=== PATIENT | female | born 1955 | race Caucasian/White ===

== ENCOUNTER → 2016-12-22 | Outpatient (CLI) | payer OTHER ==
[~2016-12-22] MED LIST: ALBUTEROL17 GM IH; ALBUTEROL17 GM INH; AMITRIPTYLINE H25 MG PO; AMITRIPTYLINE H50 MG PO; ANTI-DIARRHEAL2 M1 PO; APAP BUTALBITAL PO; BACLOFEN10 MG PO; BACTRIM DS TABL1 TA1 PO; BUSPAR; COMBIGAN EYE DRO5 ML OU; DESYREL150 M1 PO; DITROPAN5 MG PO; DULOXETINE HCL60 MG PO; FLEXERIL10 MG PO; FLOMAX0.4 M1 PO; GABAPENTIN600 MG PO; GLUCOPHAGE XR500 MG PO; HYDROCHLOROTH12.5 M1 PO; HYDROCODON-ACE1 EAC5 PO; LACTULOSE10 GM/151; LIDODERM30 EA TD; LISINOPRIL10 MG PO; LYRICA100 MG PO; MACROBID100 M1 PO; METFORMIN HCL500 M1 PO; NEURONTIN800 MG PO; NOVOLOG MI100 UNIT/1 SUBQ; NOVOLOG100 UNIT/1 SUBQ; OMEPRAZOLE40 M1 PO; OXYCODONE APAP PO; OXYCODONE-ACET1 EAC1 PO; OXYCODONE15 M1 PO; PAROXETINE HCL40 M1 PO; PHENERGAN12.5 MG PO; PRILOSEC PO; PRILOSEC20 M1 PO; QVAR7.3 G1 IH; RANITIDINE HCL150 M1 PO; RELAFEN500 MG PO; REQUIP1 MG PO; ROPINIROLE HCL1 MG PO; SKIN TREATMENT225 GM TOP; SOMA PO; TIZANIDINE HCL4 M1 PO; TRAZODONE HCL150 MG PO; VOLTAREN75 MG PO; XALATAN OU; ZANAFLEX4 M1 PO; ZESTRIL10 M2 PO
--- NOTE | ~2016-12-22 | PFT ---
[id number] [facility] [address] [place], [place] [address] [id number] O MR#: [id number] NAME: SANDRA CARNEY ROOM: SEX: F STUDY DATE/TIME: 12/24/2016 : 1955 AGE: 61 STUDY DESCRIPTION: Attending Physician: Edgar So M.D. Primary Care Physician: Jake Bonilla M.D. PULMONARY DIAGNOSTIC REPORT EXAM Pulmonary function test. FINDINGS Spirometry is suggestive of a mild obstructive defect. There is a borderline response to bronchodilators yielding a FEV1 of 1.95 L, 69% of predicted. Flow volume loop is suggestive of an obstructive defect. Lung volumes reveal air trapping and hyperinflation. Diffusion capacity is reduced to 61%. Changes are consistent with emphysema. Dictated by... Michael Cummings/uziel TD: 12/24/2016 13:22 JOB #: [id number] CC: Edgar So M.D. PULMONARY DIAGNOSTIC REPORT
== END | disposition home or self-care (01) ==
LOC: CRC 13:46
DX: J44.9 Chronic obstructive pulmonary disease, unspecified (principal)
CPT/HCPCS: 94060; 94726; 94729

== ENCOUNTER 2017-01-30 20:53 | Inpatient (IN) | payer OTHER ==
--- NOTE | ~2017-01-30 | EKG ---
PATIENT: SANDRA CARNEY UNIT #: [id number] Ventricular Rate: 80 BPM Atrial Rate: 80 BPM P-R Interval: 158 ms QRS Duration: 90 ms Q-T Interval: 404 ms QTC Calculation(Bezet): 465 ms P [place]: 75 degrees Calculated R [place]: 73 degrees Calculated T [place]: 75 degrees Diagnosis Line: Normal sinus rhythm Diagnosis Line: Normal ECG Diagnosis Line: No previous ECGs available Diagnosis Line: Confirmed by DEWAYNE CORRAL MD ([id number]) on 02/01/2017 Diagnosis Line: 7:09:50 AM INTERPRETING MD: ELLIS REED
--- NOTE | ~2017-01-30 | CR72 ---
[facility] A Service of [facility] RADIOLOGY TEXT RESULTS PATIENT: SANDRA CARNEY LOCATION: [place] [address] : 55 UNIT #: [id number] AGE: [address]: Nicho Montoya MD SEX: F ORDER DR: [id number] [facility] [address] [facility]. [place], [place] [address] [id number] I MR#: [id number] Acc #: [id number] NAME: SANDRA CARNEY : 1955 SEX: F STUDY DATE/TIME: 01/30/2017 22:34 UNIT: [facility] ROOM: [facility] STUDY DESCRIPTION: CR Chest Single View Portable Attending Physician: Nicho Montoya M.D. Ordering Physician: Shameka Nieves M.D. Primary Care Physician: Edgar So M.D. MEDICAL IMAGING REPORT This report is preliminary unless electronic signature is present EXAM AP portable chest 01/30/2017 HISTORY A 61-year-old female admitted to the hospital through the ED with acute intertrochanteric left hip fracture. Preoperative testing prior to hip surgery. TECHNIQUE AP portable upright chest x-ray. FINDINGS The heart size and pulmonary vascularity are within normal limits. The lungs are expanded and clear. No visible pulmonary infiltrate, pneumothorax or pleural effusion. Old healed right rib fracture deformities. Previous lower cervical spine fusion surgery. No change since 07/23/2016. IMPRESSION 1. No active disease. 2. Old healed right rib fractures. 3. No change since 07/23/2016. Dictated by... Jake Vaz M.D. THIS IS AN ELECTRONICALLY VERIFIED REPORT Jake Vaz M.D. at 02/02/2017 5:59 AM LV/avel TD: 01/31/2017 20:51 [facility] A Service of [facility] RADIOLOGY TEXT RESULTS PATIENT: SANDRA CARNEY LOCATION: [place] [address] : [birth year] UNIT #: [id number] AGE: [address]: Nicho Montoya MD SEX: F ORDER DR: JOB #: [id number] MEDICAL IMAGING REPORT Page 1 of 1 COPY
--- NOTE | ~2017-01-30 | CO ---
Unit #: [id number] #: [id number] Patient: SANDRA HAMPTON [id number] [address] [place], [place] [address] [id number] I MR#: [id number] NAME: SANDRA HAMPTON ROOM: 461 Age: 61 Sex: F Admission Date: 01/30/2017 : 1955 Attending Physician: Nicho Montoya M.D. Primary Care Physician: Edgar So M.D. Consultation Date: 01/31/2017 CONSULTATION REPORT CHIEF COMPLAINT Left hip pain. HISTORY OF PRESENT ILLNESS Ms. Hampton is a 61-year-old female, who is status post a ground level fall at home, who is then transferred to the emergency department and diagnosed with a left intertrochanteric hip fracture. She states that she is status post recent lumbar spine fusion as well. She has been ambulating with a walker or cane. She was without either of these assistive devices when she fell. She was subsequently unable to stand or bear weight on the affected extremity and was brought by EMS to the emergency department. Orthopedic consultation has been requested regarding care of her hip fracture. She has been admitted to the Internal Medicine hospitalist service. She is currently examined supine on her hospital bed. She is somewhat tearful and complaining of pain in the left hip. This is worse with any attempted movement in bed. It is relieved by a pillow under the affected extremity and her IV pain medication. PAST MEDICAL HISTORY COPD, diabetes mellitus, gastroesophageal reflux, anxiety disorder, chronic pain disorder, nephrolithiasis, hypertension. PAST SURGICAL HISTORY Appendectomy, , lumbar diskectomy, lumbar spine fusion. MEDICATIONS Albuterol, Combigan eyedrops, Neurontin, amitriptyline, Glucophage, Xalatan eyedrops, insulin NovoLog, ranitidine, oxycodone 15 mg p.o. q.4 hours, Soma 350 mg p.o. b.i.d. ALLERGIES She has an adverse reaction to Dilaudid and allergies to Demerol and tetracycline. SOCIAL HISTORY The patient denies any alcohol use. She smokes 7.5 packs of cigarettes daily. She is not working. She previously ambulated with a walker or cane. FAMILY HISTORY Noncontributory to current illness. Unit #: [id number] #: [id number] Patient: SANDRA HAMPTON REVIEW OF SYSTEMS Ten systems reviewed and negative except as noted in the HPI with chronic low back pain. PHYSICAL EXAMINATION GENERAL: This is a 61-year-old female appearing slightly older than stated age. HEENT: Normocephalic, atraumatic cranium. Status post multiple tooth extractions. PSYCHIATRIC: Awake, alert, and oriented to person, place, and time. CARDIAC: Regular rate and rhythm. PULMONARY: No increased work of breathing. Symmetric chest rise. ABDOMEN: Nondistended. NEUROLOGIC: Intact motor function in the bilateral upper extremities and right lower extremity. She demonstrates intact function L4 through S1 in the left lower extremity. Sensation is intact throughout. VASCULAR: Her foot is warm and well perfused. MUSCULOSKELETAL: Left lower extremity shortened and somewhat externally rotated. She has had this rested with a pillow under the knee. SKIN: There is no overlying evidence of open injury or skin changes. LYMPHATICS: No lymphedema or lymphadenopathy. DIAGNOSTIC STUDIES IMAGING STUDIES: Plain film radiographs reviewed of the left hip and demonstrate a displaced intertrochanteric hip fracture with displacement of the lesser trochanter as well. LABORATORY RESULTS: BMP is unremarkable. Hemoglobin is 10.4, otherwise CBC is unremarkable. INR is 1.1. ASSESSMENT AND PLAN This is a 61-year-old female with chronic pain disorder with left intertrochanteric hip fracture after ground level fall. We will plan for intramedullary nailing of the left hip this morning. The nature of the surgery has been discussed with the patient and family. They elected to proceed. We discussed pain control postoperatively may be difficult as she is already on oxycodone 15 mg q.4 hours at baseline. We will plan to begin DVT prophylaxis postop tomorrow. Dictated by... Juan Fuller M.D. MARIA A/mari TD: 02/01/2017 01:43 JOB #: [id number] CONSULTATION REPORT Page 1 of 1 X Juan Fuller MD CONSULTATION REPORT
--- NOTE | ~2017-01-30 | OR ---
Unit #: [id number] #: [id number] Patient: SANDRA CARNEY [id number] [address] [id number] I MR#: [id number] NAME: SANDRA CARNEY ROOM: 461 Date of Procedure: 01/31/2017 Admission Date: 01/30/2017 Surgeon: Juan Fuller M.D. : 1955 Attending Physician: Nicho Montoya M.D. Primary Care Physician: Edgar So M.D. OPERATIVE REPORT PREOPERATIVE DIAGNOSIS Left intertrochanteric hip fracture. POSTOPERATIVE DIAGNOSIS Left intertrochanteric hip fracture. PROCEDURE PERFORMED Left hip intramedullary nailing. IMPLANTS [employer] cephalomedullary nail 10 x 210 mm with a 130 degree neck shaft angle and a 95 mm lag screw with a 32.5 mm distal interlocking screw. ANESTHESIA General. ESTIMATED BLOOD LOSS 100 mL. COMPLICATIONS None apparent. INDICATIONS FOR PROCEDURE Ms. Lezama is a 61-year-old female, who fell injuring her left hip while at home. She sustained a displaced intertrochanteric hip fracture. Operative intervention in the form of intramedullary nailing was discussed with the patient and family, they elected to proceed. DESCRIPTION OF PROCEDURE The patient was identified in the preoperative holding area. The operative site was marked. Preoperative antibiotics were administered. The patient was brought to the operating room while supine on her hospital bed. A general anesthetic was induced on her bed and she was then transferred to the operative table. The patient was placed on the [place] table with the legs in a scissored position with the left lower extremity in traction. The hip fracture was reduced on the operative table. The left lower extremity was then prepped and draped in sterile fashion. A shower curtain drape was utilized. An incision was made proximal to the greater trochanter. A starting awl was advanced through the tip of the greater trochanter into the proximal Unit #: [id number] #: [id number] Patient: SANDRA CARNEY femoral canal. The starting point was confirmed on both AP and lateral images. A reaming alanna was then passed down the femoral canal. The proximal opening reamer was utilized to ream the proximal femur. The nail was then inserted and seated to the desired depth. The guide pin for the lag screw was drilled up the femoral neck. Position was confirmed on orthogonal images. This was then measured, reamed, and inserted. Attention was then turned to the distal interlocking screw. Utilizing the targeting outrigger jig, a stab incision was created for the distal interlock. The drill sleeves were advanced down to bone on the femur. We then drilled and inserted a 32.5 mm interlocking screw. Orthogonal images were used to confirm that the fracture was in desired location within the intramedullary nail. The nail insertion handle was removed. It should be noted that prior to removing the nail once the lag screw was in place, the set screw was advanced down the nail to fully lock the lag screw in place and prevent any sliding. Traction was then removed and compression was applied through the drill sleeve. This was prior to placing the distal interlocking screw as noted above. Final images were obtained and demonstrated anatomic reduction with satisfactory placement of the hardware. The wounds were irrigated and closed in a layered fashion with 2-0 Vicryl and jackie in the skin. Sterile dressings were applied. DISPOSITION Stable to the recovery room. Dictated by... Michael Ascencio/mari TD: 02/02/2017 05:25 JOB #: [id number] OPERATIVE REPORT Page 1 of 1 X Juan Fuller MD PROCEDURE OPERATIVE NOTE
--- NOTE | ~2017-01-30 | HP ---
Unit #: [id number] #: [id number] Patient: SANDRA CARNEY [id number] [address] [place], [place] [address] [id number] I MR#: [id number] NAME: SANDRA CARNEY ROOM: 241 Age: 61 Sex: F Admission Date: 01/30/2017 : 1955 Attending Physician: Nicho Montoya M.D. Primary Care Physician: Edgar So M.D. HISTORY AND PHYSICAL CHIEF COMPLAINT Fall with left hip pain. DISCUSSION This is a 61-year-old female with history of insulin dependent diabetes, asthma, GERD, degenerative disk disease of the spine, chronic back pain, anxiety, depression, restless leg syndrome, arthritis, and glaucoma. Denies any history of coronary artery disease. She says she was with the dog walking and she (1) and then she tripped and landed on the left hip pain and with severe left hip pain. She was brought to the emergency room. On workup, she was found to have comminuted intertrochanteric left femur fracture. Eventually been admitted. She denies chest pain. She is complaining of severe left hip pain. Denies nausea, vomiting, fever, chills, cough, diarrhea, constipation, or any other complaints. PAST MEDICAL HISTORY 1. Insulin dependent diabetes. 2. History of seasonal asthma. 3. GERD. 4. Degenerative disk disease of the spine/chronic back pain. 5. Arthritis. 6. Anxiety/depression. 7. Restless leg syndrome. 8. History of glaucoma. PAST SURGICAL HISTORY 1. History of C section. 2. Appendectomy. 3. History of back surgery x2 in July 2016 and September 2016. 4. Cervical disk surgery. 5. History of hand laceration repair. 6. History of right foot surgery. SOCIAL HISTORY She smokes less than 1/2 pack daily. Denies alcohol. Denies illicit drug use. FAMILY HISTORY Father of throat cancer. Otherwise, unremarkable family history to pertinent case. MEDICATIONS From home are following: Unit #: [id number] #: [id number] Patient: SANDRA CARNEY 1. Carisoprodol 325 p.o. twice daily. 2. Combigan eyedrops 2 times a day. 3. Neurontin 800 mg 3 times daily. 4. Xalatan eyedrops at bedtime. 5. Glucophage 500 mg before breakfast. 6. NovoLog 20 units subcu. before breakfast and supper. 7. Oxycodone 15 mg 4 times a day. 8. Ranitidine 150 mg daily. 9. Ventolin 2 puffs q.4 hours p.r.n. 10. Amitriptyline 25 mg at bedtime. REVIEW OF SYSTEMS All review of systems negative, except history of present illness. PHYSICAL EXAMINATION GENERAL APPEARANCE: Middle-aged female lying in the bed comfortably. She is alert, awake, oriented x3. In moderate distress secondary to severe left hip pain. VITAL SIGNS: Current vitals are following: Temperature 98.2, heart rate 84, respiratory rate 20, blood pressure 107/78, and oxygen at 95% on room air. HEENT: Head is normocephalic and atraumatic. Pharynx normal. NECK: Supple. No JVD. No thyromegaly. LUNGS: Clear to auscultation. No rhonchi. No wheezing. HEART: S1 and S2. Regular rate and rhythm. ABDOMEN: Soft, nontender, and nondistended. Bowel sounds positive. SKIN: Color normal. Warm and dry. NEUROLOGICAL: She is alert and oriented x4. Cranial nerves, II-XII, intact. Upper extremity power 5/5. Lower extremities: Unable to do power secondary to severe pain. PSYCH: Mood and affect normal. DIAGNOSTIC STUDIES LABORATORY: Sodium 136, potassium 3.4, chloride 101, glucose 181, BUN 8, and creatinine 0.5. INR is 1.1. CBC: White count 7.2, hemoglobin 10, hematocrit 32, and platelets 211. IMAGING: X-ray of left hip shows comminuted nondisplaced intertrochanteric proximal left femur fracture. ASSESSMENT AND PLAN 1. Status post fall with comminuted nondisplaced intertrochanteric left femur fracture. Keep patient NPO from midnight. Ortho, Dr. Fuller, to see. Repeat chest x-ray and EKG. She mentions she has no history of coronary artery disease in the past. 2. Insulin dependent diabetes. Will hold the Glucophage and insulin. Place on sliding scale. 3. History of asthma, currently stable. 4. GERD. 5. Degenerative disk disease of the spine/chronic back pain. 6. Anxiety/depression. 7. Arthritis. 8. Restless leg syndrome. 9. History of glaucoma. 10. DVT prophylaxis, will place the patient on Lovenox 40 mg subcu. daily. Unit #: [id number] #: [id number] Patient: SANDRA CARNEY Dictated by Michael June/robel TD: 01/31/2017 10:41 JOB #: [id number] HISTORY AND PHYSICAL Page 1 of 1 X X HISTORY AND PHYSICAL
--- NOTE | ~2017-01-30 | DS ---
Unit #: [id number] #: [id number] Patient: SANDRA HAMPTON [id number] [address] [address] [id number] I MR#: [id number] NAME: SANDRA HAMPTON ROOM: 461 Age: 61 Sex: F Admission Date: 01/30/2017 : 1955 Discharge Date: 02/02/2017 Attending Physician: Suzanne Mckeon M.D. Primary Care Physician: Edgar So M.D. DISCHARGE SUMMARY PRINCIPAL DIAGNOSES 1. Left hip fracture status post intramedullary nailing. 2. Acute postop blood loss anemia; at discharge hemoglobin is 8.3. 3. Osteoporosis. 4. Severe anxiety. 5. Chronic back pain, maintained on narcotics. 6. Insulin-dependent diabetes mellitus, controlled. 7. Gastroesophageal reflux disease. 8. Arthritis. 9. Glaucoma. 10. Restless leg syndrome. 11. Anxiety and depression. CONSULTANTS Dr. Fuller, orthopedic surgery. PROCEDURES Left hip intramedullary nailing on January 31, 2017. This occurred without complication. DIAGNOSTIC STUDIES IMAGING: X-ray of left hip on January 30, 2017 with a comminuted intertrochanteric left hip fracture. Chest x-ray on January 30, 2017 with healed right rib fracture. CLINICAL HISTORY AND HOSPITAL COURSE Ms. Hampton is a 61-year-old female who presented to the emergency department with left hip pain after a fall at home. Please refer to H and P for further details. X-ray in the emergency department revealed a left hip fracture, and the patient was subsequently admitted. Dr. Fuller was consulted, and the patient underwent intramedullary nailing of the hip. Postoperatively, she has done relatively well with the exception of complaints of pain, as will be outlined below. Preoperatively her hemoglobin was 10.4, and it is now down to 8.3 postoperatively; however, she does not have any significant large hematoma on exam. Hemoglobin can be monitored as an outpatient. She will be maintained on anticoagulation as outlined below. I will also start her on calcium and vitamin D given her diagnosis of osteoporosis, and in 6-8 weeks she would benefit from bisphosphonate therapy. Postoperatively the patient had significant complaints of pain to the point that she had a decrease in mental status due to her dosing of pain Unit #: [id number] #: [id number] Patient: SANDRA HAMPTON medication based upon her pain scale. Upon discussion with the patient this morning, she was initially asleep and comfortable when I entered the room, but when awakened, she starts crying saying she is in pain. I think there is a large anxiety component to her pain, and this will have to be watched closely at rehab. The patient's other chronic conditions all remained stable. She will be discharged to rehab when bed is available. DISCHARGE CONDITION Stable. DISCHARGE STATUS Discharge to rehab. DISCHARGE MEDICATIONS 1. Albuterol inhaler 2 puffs q.4 hours p.r.n. shortness of breath. 2. Combigan eyedrops 1 drop to both eyes q.12 hours. 3. Lovenox 40 mg subcutaneously q.24 hours at noon, to stop after doses on February 22, 2017. 4. Neurontin 800 mg p.o. t.i.d. 5. Amitriptyline 25 mg at bedtime. 6. Metformin XR 500 mg at breakfast. 7. Xalatan eyedrops 1 drop to both eyes at bedtime. 8. NovoLog sliding scale with meals. 9. Ranitidine 150 mg daily. 10. Oxycodone 20 mg p.o. q.4 hours p.r.n. pain. (Of note, the patient's home dose is 15 mg p.o. q.4 hours, and this is her discharge dose from rehab.) 11. Carisoprodol 350 mg p.o. b.i.d. 12. Calcium plus vitamin D 600 mg p.o. b.i.d. DISCHARGE INSTRUCTIONS Patient was instructed to follow a regular diet. She can increase her activity as tolerated under the care of physical and occupational therapy. She is weightbearing as tolerated on the left lower extremity. FOLLOW-UP 1. Patient will follow up with Dr. Fuller in 2 weeks. 2. Needs CBC done on February 05, 2017 to ensure hemoglobin is stabilizing. 3. Patient will follow up with her primary care physician, Dr. So, upon discharge from rehab. NOTE: Time spent on discharge - 33 minutes. Dictated by... Suzanne Mckeon M.D. ANJEL/mariela TD: 02/02/2017 08:18 JOB #: [id number] Unit #: [id number] #: [id number] Patient: SANDRA HAMPTON ANN DISCHARGE SUMMARY Page 1 of 1 X Suzanne Mckeon MD X DISCHARGE SUMMARY
--- NOTE | ~2017-01-30 | CR150 ---
[facility] A Service of [facility] RADIOLOGY TEXT RESULTS PATIENT: SANDRA CARNEY LOCATION: [facility] 461-01 : 55 UNIT #: [id number] AGE: [address]: Nicho Montoya MD SEX: F ORDER DR: [id number] [facility] [address] [place], [place] [address] [id number] I MR#: [id number] Acc #: [id number] NAME: SANDRA CARNEY : 1955 SEX: F STUDY DATE/TIME: 01/30/2017 20:15 UNIT: [facility] ROOM: [facility] STUDY DESCRIPTION: CR Hip Min 2 Views Lt Attending Physician: Nicho Montoya M.D. Ordering Physician: Mata Leyva M.D. Primary Care Physician: Edgar So M.D. MEDICAL IMAGING REPORT This report is preliminary unless electronic signature is present EXAM Left hip 01/30/2017 HISTORY 61-year-old female in the ED with severe pain after a fall onto concrete surface today prior to arrival. TECHNIQUE 2 view left hip series. FINDINGS The examination shows a comminuted, nondisplaced intertrochanteric fracture of the proximal left femur involving both the greater and lesser trochanters. Femoral head and neck appear intact. No visible pelvis fracture. IMPRESSION Comminuted intertrochanteric left hip fracture. Dictated by... Jake Vaz M.D. THIS IS AN ELECTRONICALLY VERIFIED REPORT Jake Vaz M.D. at 02/02/2017 5:59 AM LV/tyra TD: 01/31/2017 15:22 JOB #: [id number] MEDICAL IMAGING REPORT Page 1 of 1 COPY
--- NOTE | ~2017-01-30 | CR150 ---
[facility] A Service of [facility] RADIOLOGY TEXT RESULTS PATIENT: SANDRA CARNEY LOCATION: [place] [address]- : 55 UNIT #: [id number] AGE: [address]: Nicho Montoya MD SEX: F ORDER DR: [id number] [facility] [address] [address] [id number] I MR#: [id number] Acc #: [id number] NAME: SANDRA CARNEY : 1955 SEX: F STUDY DATE/TIME: 01/31/2017 9:17 UNIT: [facility] ROOM: [facility] STUDY DESCRIPTION: CR Hip Min 2 Views Lt Attending Physician: Nicho Montoya M.D. Ordering Physician: Juan Fuller M.D. Primary Care Physician: Edgar So M.D. MEDICAL IMAGING REPORT This report is preliminary unless electronic signature is present EXAM Left hip 01/31/2017 HISTORY 61-year-old female with left hip fracture status post gamma nail placement in operating room 01/31/2017 COMPARISON Left hip 01/30/2017 FINDINGS 8 intraoperative fluoroscopic images demonstrate intraoperative placement of a left hip gamma nail. Images were interpreted intraoperatively by the attending surgeon. Total fluoroscopic time 1.05 minutes. Dictated by... Adan Moore M.D. THIS IS AN ELECTRONICALLY VERIFIED REPORT Adan Moore M.D. at 02/01/2017 8:14 AM ARNOLDO/narendra TD: 02/01/2017 04:50 JOB #: [id number] MEDICAL IMAGING REPORT Page 1 of 1 COPY
[2017-01-30 20:26] LABS: BASOPHIL# 0.1 X10e3 (0-0.3); BASOPHIL% 1.2 % (0-2.5); EOSINOPHIL# 0.2 X10e3 (0-0.7); EOSINOPHIL% 2.7 % (0.0-7.0); HEMATOCRIT 32.3 % (35.0-45.0); HEMOGLOBIN 10.4 gm/dL (12.0-16.0); LYMPHOCYTE# 2.9 X10e3 (1.0-3.5); LYMPHOCYTE% 40.8 % (17.0-45.0); MEAN CELL VOLUME 85.1 FL (83-96); MEAN CORPUSCULAR HEMOGLOBIN 27.5 PG (28-34); MEAN CORPUSCULAR HGB CONC 32.4 g/dL (30-36); MEAN PLATELET VOLUME 8.2 FL (6.5-11.5); MONOCYTE# 0.6 X10e3 (0-1.0); MONOCYTE% 8.4 % (3.0-12.0); NEUTROPHIL# 3.4 X10e3 (1.5-7.1); NEUTROPHIL% 46.9 % (40-75); PLATELET COUNT 211 X10e3 (140-420); RED BLOOD COUNT 3.79 X10e (3.90-5.30); WHITE BLOOD COUNT 7.2 X10e3 (4.0-10.5)
[2017-01-30 20:30] LABS: DIFF IND NO
[2017-01-30 20:33] LABS: INR 1.1; PARTIAL THROMBOPLASTIN TIME 28.3 SECONDS (23.5-31.3); PROTHROMBIN TIME (PATIENT) 11.6 SECONDS (9.6-11.5)
[2017-01-30 20:47] LABS: CALCIUM SERUM 8.6 mg/dL (8.4-10.2); CREATININE SERUM 0.5 mg/dL (0.6-1.4); GLOM FILT RATE Estimated 104.5 mL/min (>60); POTASSIUM 3.4 mmol/L (3.5-5.1)
[~2017-01-30 20:53] MED LIST changes: -ALBUTEROL17 GM INH; -AMITRIPTYLINE H25 MG PO; -BUSPAR; -COMBIGAN EYE DRO5 ML OU; -DESYREL150 M1 PO; -DULOXETINE HCL60 MG PO; -FLOMAX0.4 M1 PO; -GLUCOPHAGE XR500 MG PO; -LACTULOSE10 GM/151; -LYRICA100 MG PO; -NEURONTIN800 MG PO; -NOVOLOG100 UNIT/1 SUBQ; -OMEPRAZOLE40 M1 PO; -OXYCODONE-ACET1 EAC1 PO; -OXYCODONE15 M1 PO; -RANITIDINE HCL150 M1 PO; -RELAFEN500 MG PO; -REQUIP1 MG PO; -SOMA PO; -XALATAN OU; -ZANAFLEX4 M1 PO; -ZESTRIL10 M2 PO
[2017-01-30] MEDS ORDERED: SOMA PO (21:20)
[2017-01-30] MEDS ORDERED: NEURONTIN800 MG PO (21:21)
[2017-01-30] MEDS ORDERED: COMBIGAN EYE DRO5 ML OU (21:21)
[2017-01-30] MEDS ORDERED: XALATAN OU (21:23)
[2017-01-30] MEDS ORDERED: GLUCOPHAGE XR500 MG PO (21:24)
[2017-01-30] MEDS ORDERED: NOVOLOG100 UNIT/1 SUBQ (21:25)
[2017-01-30] MEDS ORDERED: OXYCODONE15 M1 PO (21:27)
[2017-01-30] MEDS ORDERED: RANITIDINE HCL150 M1 PO (21:27)
[2017-01-30] MEDS ORDERED: FLOMAX0.4 M1 PO (21:28)
[2017-01-30] MEDS ORDERED: ZANAFLEX4 M1 PO (21:29)
[2017-01-30] MEDS ORDERED: DESYREL150 M1 PO (21:30)
[2017-01-30] MEDS ORDERED: ALBUTEROL17 GM INH (21:30)
[2017-01-30] MEDS ORDERED: AMITRIPTYLINE H25 MG PO (21:39)
[2017-01-31 06:17] LABS: CALCIUM SERUM 8.7 mg/dL (8.4-10.2); CREATININE SERUM 0.5 mg/dL (0.6-1.4); GLOM FILT RATE Estimated 104.5 mL/min (>60); POTASSIUM 4.7 mmol/L (3.5-5.1)
[2017-02-01 04:10] LABS: HEMATOCRIT 29.3 % (35.0-45.0); HEMOGLOBIN 9.3 gm/dL (12.0-16.0); MEAN CELL VOLUME 86.1 FL (83-96); MEAN CORPUSCULAR HEMOGLOBIN 27.5 PG (28-34); MEAN CORPUSCULAR HGB CONC 31.9 g/dL (30-36); MEAN PLATELET VOLUME 8.7 FL (6.5-11.5); RED BLOOD COUNT 3.4 X10e (3.90-5.30); RED CELL DISTRIBUTION WIDTH 17.7 % (11.0-15.5)
[2017-02-01 04:35] LABS: CREATININE SERUM 0.5 mg/dL (0.6-1.4); GLOM FILT RATE Estimated 104.5 mL/min (>60); POTASSIUM 3.8 mmol/L (3.5-5.1)
[2017-02-02 03:58] LABS: BASOPHIL% 0.5 % (0-2.5); EOSINOPHIL# 0.2 X10e3 (0-0.7); EOSINOPHIL% 1.7 % (0.0-7.0); HEMATOCRIT 25.9 % (35.0-45.0); HEMOGLOBIN 8.3 gm/dL (12.0-16.0); LYMPHOCYTE# 3.1 X10e3 (1.0-3.5); LYMPHOCYTE% 35.1 % (17.0-45.0); MEAN CELL VOLUME 86.1 FL (83-96); MEAN CORPUSCULAR HEMOGLOBIN 27.7 PG (28-34); MEAN CORPUSCULAR HGB CONC 32.2 g/dL (30-36); MEAN PLATELET VOLUME 8.5 FL (6.5-11.5); MONOCYTE% 11.2 % (3.0-12.0); NEUTROPHIL# 4.5 X10e3 (1.5-7.1); NEUTROPHIL% 51.5 % (40-75); PLATELET COUNT 173 X10e3 (140-420); RED BLOOD COUNT 3.01 X10e (3.90-5.30); RED CELL DISTRIBUTION WIDTH 17.5 % (11.0-15.5); WHITE BLOOD COUNT 8.8 X10e3 (4.0-10.5)
[2017-02-02 03:59] LABS: DIFF IND NO
[2017-06-25] MEDS ORDERED: OXYCODONE-ACET1 EAC1 PO (14:10)
[2017-06-25] MEDS ORDERED: OMEPRAZOLE40 M1 PO (14:11)
[2017-06-25] MEDS ORDERED: RELAFEN500 MG PO (14:13)
[2017-06-25] MEDS ORDERED: LACTULOSE10 GM/151 (14:18)
[2017-06-25] MEDS ORDERED: ZESTRIL10 M2 PO (14:19)
[2017-06-25] MEDS ORDERED: LYRICA100 MG PO ×2 (14:19→14:20)
[2017-06-25] MEDS ORDERED: REQUIP1 MG PO (14:20)
[2017-06-25] MEDS ORDERED: DULOXETINE HCL60 MG PO (14:20)
[2017-06-25] MEDS ORDERED: BUSPAR (14:20)
== END 2017-02-02 19:30 | DRG 481 ==
LOC: CED 20:53 → CEDOF 21:50 → C2A 23:14 → C4C 01-31 12:35
PROVIDERS: Emergency Medicine; Internal Medicine; Orthopaedic Surgery
PROC: 0QS706Z Reposition Left Upper Femur with Intramedullary Internal Fixation Device, Open Approach (ICD-10-PCS; principal; 2017-01-31 09:30)
DX: S72.142A Displaced intertrochanteric fracture of left femur, initial encounter for closed fracture (principal); D62 Acute posthemorrhagic anemia; W01.0XXA Fall on same level from slipping, tripping and stumbling without subsequent striking against object, initial encounter; Y93.K1 Activity, walking an animal; Y92.009 Unspecified place in unspecified non-institutional (private) residence as the place of occurrence of the external cause; M81.0 Age-related osteoporosis without current pathological fracture; F41.9 Anxiety disorder, unspecified; M54.9 Dorsalgia, unspecified; E11.9 Type 2 diabetes mellitus without complications; K21.9 Gastro-esophageal reflux disease without esophagitis; H40.9 Unspecified glaucoma; G25.81 Restless legs syndrome; F32.9 Major depressive disorder, single episode, unspecified; J45.909 Unspecified asthma, uncomplicated; F17.210 Nicotine dependence, cigarettes, uncomplicated; G89.4 Chronic pain syndrome
CPT/HCPCS: 36415; 71010; 73502; 76000; 80048; 82947; 85025; 85027; 85610; 85730; 93005; 94760; 96374; 97110; 97116; 97162; 97530; 99285; C1713; J0690; J1650; J1815; J2250; J2270; J2405; J2550; J3010